=== PATIENT | female | born 1970 | race Hispanic/Latino ===

== ENCOUNTER 2021-01-25 14:34 | Emergency (ER) | payer SELFPAY ==
[2021-01-25 14:36] VITALS: BP 120/71; PULSE 77; RESP 16; TEMP 36.5; O2SAT 100
--- NOTE | 2021-01-25 15:17 | ED.EAR ---
HPI - Ear Problem General Chief complaint: Ear Stated complaint: ear pain Time Seen by Provider: 01/25/21 15:17 Source: patient Mode of arrival: ambulatory Limitations: no limitations History of Present Illness HPI Narrative: Larisa Mcbride is a 50 yo female with no PMH who [facility] with left ear pain this been going on for a week; has been worse over the last few days; no fever, no nausea vomiting or diarrhea Related Data Allergies Allergy/AdvReac Type Severity Reaction Status Date / Time No Known Allergies Allergy Unverified 01/25/21 14:52 Review of Systems Review of Systems: CONSTITUTIONAL: Denies fever, chills, sweats. EYES: Denies visual changes, redness, discharge. ENT: Denies rhinorrhea, congestion, sore throat, left otalgia. CARDIOVASCULAR: Denies chest pain, palpitations, edema. RESPIRATORY: Denies dyspnea, wheezing, cough GASTROINTESTINAL: Denies abdominal pain, nausea, vomiting, diarrhea. GENITOURINARY: Denies dysuria, hematuria, abnormal discharge SKIN: Denies rash or itching. NEUROLOGIC: Denies numbness, or focal weakness. PSYCHIATRIC: Denies anxiety or depression. [facility] Past Medical History Medical History No acute medical problems Social History Social History (Updated 01/25/21 @ 15:25 by Chana Benoit CNP) Smoking status: Never smoker Alcohol intake: never Comments At time of signature, I agree with nursing past medical, surgical, social and family history. There is no relevant family history pertinent to the presenting complaint. Exam Narrative: GENERAL: This is a well-nourished, well-developed patient, in mild distress. HEAD: normocephalic, atraumatic. EYES: Sclera clear/white. Vision is grossly intact. EARS: External ears normal, auditory canals erythematous and without drainage, TMs with bulging from fluid hearing grossly intact. NOSE: External nose normal without nasal discharge, nares without redness, no rhinorrhea. THROAT: Mucous membranes moist, NECK: Neck supple, non-tender CARDIOVASCULAR: Regular rate and rhythm without murmurs, gallops, or rubs. RESPIRATORY: Clear to auscultation. Breath sounds equal bilaterally. No wheezes, rales, or rhonchi. GASTROINTESTINAL: Abdomen soft, SKIN: warm, intact with no suspicious lesions or rash, good texture and turgor. NEURO: awake, alert, and oriented to person, place and time. There were no obvious focal neurologic abnormalities. Steady gait EXTREMITIES: Normal range of motion. BACK: Nontender without deformity Course Course Emergency Course: Patient has had symptoms x1 week, worsening in the last few days Started on amoxicillin 875 twice daily, Flonase, Zyrtec Vital Signs Vital signs: Vital Signs Temperature 97.7 F 01/25/21 14:36 Pulse Rate 77 01/25/21 14:36 Respiratory Rate 16 01/25/21 14:36 Blood Pressure 120/71 01/25/21 14:36 Pulse Oximetry 100 01/25/21 14:36 Temperature 97.7 F 01/25/21 14:36 Pulse Rate 77 01/25/21 14:36 Respiratory Rate 16 01/25/21 14:36 Blood Pressure 120/71 01/25/21 14:36 Pulse Oximetry 100 01/25/21 14:36 Medical Decision Making Differential Diagnosis Differential Diagnosis: Otitis media versus otitis externa versus eustachian tube dysfunction Vital Signs Vital Signs: Vital Signs Temperature 97.7 F 01/25/21 14:36 Pulse Rate 77 01/25/21 14:36 Respiratory Rate 16 01/25/21 14:36 Blood Pressure 120/71 01/25/21 14:36 Pulse Oximetry 100 01/25/21 14:36 Temperature 97.7 F 01/25/21 14:36 Pulse Rate 77 01/25/21 14:36 Respiratory Rate 16 01/25/21 14:36 Blood Pressure 120/71 01/25/21 14:36 Pulse Oximetry 100 01/25/21 14:36 Critical Care Time Critical Care Time Critical Care Time: No Discharge Plan Discharge Clinical Impression: Otitis media Qualifiers: Otitis media type: suppurative Chronicity: acute Laterality: left Recurrence: non-recurrent
== END 2021-01-25 15:43 | disposition home or self-care (01) ==
PROVIDERS: Emergency Provider Nurse Practitioner; PCP Registered Nurse
DX: H66.002 Acute suppurative otitis media without spontaneous rupture of ear drum, left ear (principal)
CPT/HCPCS: 99213; G0463